=== PATIENT | female | born 1985 | race American Indian/Alaskan Native ===

== ENCOUNTER 2021-05-21 11:30 | Emergency (ER) | payer SELFPAY ==
[2021-05-21 11:35] VITALS: BP 159/76
[2021-05-21] MEDS ORDERED: ONDANSETRON 4 MG ODT TAB PO ONE (13:21)
[2021-05-21] MEDS ORDERED: KETOROLAC 30 MG/1 ML INJ IM ONE (13:21)
--- NOTE | 2021-05-21 13:25 | Emergency Department Report ---
ED General Adult HPI - General Chief complaint: Nausea/Vomiting/Diarrhea Stated complaint: N/V Time Seen by Provider: 05/21/21 13:15 Source: EMS Mode of arrival: Stretcher Limitations: No Limitations - History of Present Illness Initial comments: 35-year-old -[place] female presents to the emergency room complaining of severe body aches that started about 3 AM this morning. She complains of headache nausea vomiting reports that she had a fever. She states that she is vaccinated with Pfizer but has not been blistered. She denies any cough no sore throat no diarrhea. She denies any allergies to medicine currently takes no meds and has no past medical history. -: This morning Time: 03:00 Location: head Severity scale (0 -10): 7 Quality: aching Consistency: constant Improves with: none Associated Symptoms: fever/chills, headaches, nausea/vomiting. denies: confusion, chest pain, cough, shortness of breath Treatments Prior to Arrival: none - Related Data Previous Rx's Medication Instructions Recorded Last Taken Type Ibuprofen [Motrin 800 MG tab] 800 mg PO Q8HR PRN #30 tablet 05/21/21 Unknown Rx Ondansetron [Zofran Odt] 4 mg PO Q8HR PRN #12 tab.rapdis 05/21/21 Unknown Rx Allergies Allergy/AdvReac Type Severity Reaction Status Date / Time No Known Allergies Allergy Unverified 05/21/21 11:32 ED Review of Systems ROS: Stated complaint: N/V Other details as noted in HPI Comment: All other systems reviewed and negative ED Past Medical Hx - Medications Home Medications: Home Medications Medication Instructions Recorded Confirmed Last Taken Type Ibuprofen [Motrin 800 MG tab] 800 mg PO Q8HR PRN #30 tablet 05/21/21 Unknown Rx Ondansetron [Zofran Odt] 4 mg PO Q8HR PRN #12 tab.rapdis 05/21/21 Unknown Rx ED Physical Exam - General Limitations: No Limitations General appearance: alert, in distress - Head Head exam: Present: atraumatic, normocephalic - Eye Eye exam: Present: normal appearance - ENT ENT exam: Present: mucous membranes moist, normal external ear exam - Neck Neck exam: Present: normal inspection, full ROM. Absent: tenderness - Respiratory Respiratory exam: Present: normal lung sounds bilaterally. Absent: respiratory distress, accessory muscle use - Cardiovascular Cardiovascular Exam: Present: regular rate - GI/Abdominal GI/Abdominal exam: Present: soft, tenderness (epigastric ) - Back Exam Back exam: Present: full ROM - Neurological Exam Neurological exam: Present: alert, oriented X3, normal gait - Psychiatric Psychiatric exam: Present: normal affect, normal mood - Skin Skin exam: Present: warm, dry, intact, normal color. Absent: rash ED Course Vital Signs 05/21/21 11:32 Temperature 98.4 F Pulse Rate 70 Respiratory 16 Rate Blood Pressure 159/76 [Left] O2 Sat by Pulse 98 Oximetry - Reevaluation(s) Reevaluation #1: 05/21/21 14:24 Patient reports feels better after having medication. ED Medical Decision Making - Medical Decision Making 35-year-old -[place] female presents to the emergency room complaining of severe body aches that started about 3 AM this morning. She complains of headache nausea vomiting reports that she had a fever. She states that she is vaccinated with Pfizer but has not been blistered. She denies any cough no sore throat no diarrhea. She denies any allergies to medicine currently takes no meds and has no past medical history. IM Toradol 30 mg and Zofran 4 mg ODT. Critical care attestation.: If time is entered above; I have spent that time in minutes in the direct care of this critically ill patient, excluding procedure time. ED Disposition Clinical Impression: Suspected COVID-19 virus infection Disposition: HOME / SELF CARE / HOMELESS Is pt being admited?: No Does the pt Need Aspirin: No Condition: Stable Instructions: COVID-19 Frequently Asked Questions, COVID-19: How to Protect Yourself and Others - CDC, Prevent the Spread of COVID-19 if You Are Sick - CDC Additional Instructions: Your symptoms appear most consistent with a nonspecific viral syndrome. However, given this current pandemic, COVID-19 is in the differential of possibilities. I do recommend outpatient Covid 19 testing. In the meantime, isolate/quarantine yourself and stay away from anyone who is elderly, immunocompromised or chronically ill. You can use ibuprofen every 6-8 hours and Tylenol every 4-8 hours, using the dosing on the back of the bottle, as needed for any fever or body aches. Return to the emergency department with any worsening of your symptoms, development of chest pain or shortness of breath, or with any acute distress. Prescriptions: Ibuprofen [Motrin 800 MG tab] 800 mg PO Q8HR PRN #30 tablet PRN Reason: Pain , Severe (7-10) Ondansetron [Zofran Odt] 4 mg PO Q8HR PRN #12 tab.rapdis PRN Reason: Nausea And Vomiting Referrals: YESENIA AUGUSTIN MD [Staff Physician] - 3-5 Days Forms: Work/School Release Form(ED) Time of Disposition: 14:24
== END 2021-05-21 14:57 | disposition home or self-care (01) ==
LOC: ED 11:30
DX: M79.18 Myalgia, other site (principal); R51.9 Headache, unspecified; R11.2 Nausea with vomiting, unspecified; Z20.822 Contact with and (suspected) exposure to COVID-19
CPT/HCPCS: 96372; 99283; J1885; J3490; Q0162